=== PATIENT | female | born 1965 | race Caucasian/White ===

== ENCOUNTER 2022-10-06 10:50 | Emergency (ER) | payer BC ==
[~2022-10-06] VITALS: Ht 170.2 cm; Wt 82.6 kg
[2022-10-06] MEDS ORDERED: AZOR 10-20 MG1 EACH PO (11:16)
[2022-10-06] MEDS ORDERED: ATENOLOL25 MG PO (11:16)
[2022-10-06] MEDS ORDERED: SINGULAIR4 M1 (11:17)
[2022-10-06] MEDS ORDERED: ALLEGRA ALLERGY60 MG PO (11:17)
[2022-10-06] MEDS ORDERED: LIPITOR20 MG PO (11:17)
[2022-10-06] MEDS ORDERED: PERMETHRIN60 GM TOP (12:39)
== END 2022-10-06 13:06 | disposition home or self-care (01) ==
LOC: ER 10:50
DX: R21 Rash and other nonspecific skin eruption (principal); Z88.6 Allergy status to analgesic agent; Z20.89 Contact with and (suspected) exposure to other communicable diseases